=== PATIENT | male | born 1970 | race Caucasian/White ===

== ENCOUNTER 2020-04-14 15:27 | Emergency (ER) | payer MEDICAID ==
[~2020-04-14] VITALS: Ht 177.8 cm; Wt 88.5 kg
[2020-04-14 15:55] VITALS: BP 133/73
== END 2020-04-14 15:56 | disposition home or self-care (01) ==
LOC: ER 15:33
DX: S40.812A Abrasion of left upper arm, initial encounter (principal); S40.811A Abrasion of right upper arm, initial encounter; S80.812A Abrasion, left lower leg, initial encounter; S80.811A Abrasion, right lower leg, initial encounter; L97.828 Non-pressure chronic ulcer of other part of left lower leg with other specified severity; L97.818 Non-pressure chronic ulcer of other part of right lower leg with other specified severity; L98.498 Non-pressure chronic ulcer of skin of other sites with other specified severity; Z98.890 Other specified postprocedural states; W57.XXXA Bitten or stung by nonvenomous insect and other nonvenomous arthropods, initial encounter; Y93.89 Activity, other specified; Y92.89 Other specified places as the place of occurrence of the external cause; Y99.8 Other external cause status

== ENCOUNTER 2020-05-10 14:46 | Emergency (ER) | payer MEDICAID ==
[~2020-05-10] VITALS: Ht 177.8 cm; Wt 86.2 kg
[2020-05-10 14:46] VITALS: BP 139/84
--- NOTE | 2020-05-10 15:15 | NUR ---
Patient discharged to home in stable condition. Written and verbal after care instructions given. Patient verbalizes understanding of instruction. Pt ambulatory with a steady gait
== END 2020-05-10 15:16 | disposition home or self-care (01) ==
LOC: ER 14:46
DX: B86 Scabies (principal); Z98.890 Other specified postprocedural states

== ENCOUNTER 2020-08-29 04:31 | Emergency (ER) | payer MEDICAID ==
[~2020-08-29] VITALS: Ht 177.8 cm; Wt 90.7 kg
[2020-08-29 04:35] VITALS: BP 137/86
[2020-08-29] MEDS ORDERED: DOXY100C2 PO (04:52)
[2020-08-29] MEDS ORDERED: CEFTRIAXONE 1 G VIAL ONE (04:59)
[2020-08-29] MEDS ORDERED: LIDOCAINE /MPF 1% VIAL 5 ML VIAL ONE (04:59)
[2020-08-29] MEDS ORDERED: CEFTRIAXONE 1 G VIAL IM ONE (05:00)
[2020-08-29] MEDS ORDERED: DOXYCYCLINE HYCLATE (100 MG) 100 MG TABLET ONE (05:00)
[2020-08-29] MEDS ORDERED: DOXYCYCLINE HYCLATE (100 MG) 100 MG TABLET PO ONE (05:00)
== END 2020-08-29 05:22 | disposition home or self-care (01) ==
LOC: ER 04:34
DX: L03.116 Cellulitis of left lower limb (principal); L03.113 Cellulitis of right upper limb; A64 Unspecified sexually transmitted disease; L98.498 Non-pressure chronic ulcer of skin of other sites with other specified severity; F17.200 Nicotine dependence, unspecified, uncomplicated; Z98.890 Other specified postprocedural states; Z79.899 Other long term (current) drug therapy
CPT/HCPCS: 96372; 99283; J0696; J3490

== ENCOUNTER 2020-11-15 20:39 | Emergency (ER) | payer MEDICAID ==
[~2020-11-15] VITALS: Ht 172.7 cm; Wt 72.6 kg
[~2020-11-15 20:39] MED LIST: DOXY100C2 PO
[2020-11-15 20:50] VITALS: BP 147/78
--- NOTE | 2020-11-15 20:50 | NUR ---
Pt bibself for staple removal. Pt aaox4 breathing evenly and unlabored. Pt had carrie placed on 10/29. Pt vvs. PA at bedside for removal
--- NOTE | 2020-11-15 21:03 | NUR ---
Patient discharged to home in stable condition. Written and verbal after care instructions given. Patient verbalizes understanding of instruction. Pt ambulatory with a steady gait
== END 2020-11-15 21:03 | disposition home or self-care (01) ==
LOC: ER 20:41
DX: S21.212D Laceration without foreign body of left back wall of thorax without penetration into thoracic cavity, subsequent encounter (principal); F10.10 Alcohol abuse, uncomplicated; F17.200 Nicotine dependence, unspecified, uncomplicated; Y90.9 Presence of alcohol in blood, level not specified; Z60.2 Problems related to living alone; Z79.899 Other long term (current) drug therapy; X58.XXXD Exposure to other specified factors, subsequent encounter

== ENCOUNTER 2021-01-05 19:57 | Emergency (ER) | payer MEDICAID ==
[~2021-01-05] VITALS: Ht 180.3 cm; Wt 86.2 kg
--- NOTE | 2021-01-05 22:01 | NUR ---
PT AAOX4. BIBSELF C/O SWOLLEN RIGHT GROIN W/ PAIN LUMPS ON SHAFT OF PENIS SINCE 1x WEEK. PLACED IN BED 13 ON MONITOR AND PULSE OX. VSS. AWAITING ER MD FOR EVAL AND ORDERS.
[2021-01-05 23:35] LABS: BASOPHILS # (AUTO) 0.1 K/uL (0.0-0.2); BASOPHILS % (AUTO) 0.5 % (0.0-2.0); EOSINOPHILS % (AUTO) 0.2 % (0.0-6.0); HEMATOCRIT 42 % (39-51); LYMPHOCYTES % (AUTO) 6.9 % (20.0-44.0); MEAN CORPUSCULAR HGB CONC 33 g/dl (31.0-36.0); MEAN CORPUSCULAR VOLUME 92 fL (80-96); MONOCYTES # (AUTO) 1.6 K/uL (0.1-1.30); MONOCYTES % (AUTO) 10.4 % (2.0-12.0); NEUTROPHILS # (AUTO) 12.3 K/uL (1.8-8.9); PLATELET COUNT (AUTO) 270 K/uL (150-450); RED BLOOD CELL COUNT(AUTO) 4.58 MIL/uL (4.5-6.0); WHITE BLOOD COUNT (AUTO) 14.9 K/uL (4.3-11.0)
[2021-01-05 23:36] LABS: CALCIUM, SERUM 9.2 mg/dL (8.5-10.1); CREATININE 0.9 mg/dL (0.6-1.3); POTASSIUM 3.7 mmol/L (3.5-5.1)
[2021-01-05 23:51] LABS: ALBUMIN 3.4 g/dL (3.4-5.0); BILIRUBIN,DIRECT 0.1 mg/dL (0.0-0.2); BILIRUBIN,TOTAL 0.5 mg/dL (0.2-1.0); TOTAL PROTEIN, SERUM 9.6 g/dL (6.4-8.2)
[2021-01-06] MEDS ORDERED: NAPR-1192 PO (00:12)
[2021-01-06] MEDS ORDERED: NAPROXEN 250 MG TABLET ONE ×2 (00:33→00:34)
--- NOTE | 2021-01-06 00:39 | NUR ---
Patient discharged to home in stable condition. Written and verbal after care instructions given. Patient verbalizes understanding of instruction and RX. Pt feels better.
[2021-01-06 01:07] VITALS: BP 131/76
== END 2021-01-06 01:08 | disposition home or self-care (01) ==
LOC: ER 20:18
DX: N43.3 Hydrocele, unspecified (principal); A63.0 Anogenital (venereal) warts; F17.200 Nicotine dependence, unspecified, uncomplicated; Z60.2 Problems related to living alone
CPT/HCPCS: 36415; 80048-TC; 80076-TC; 83605-TC; 83690-TC; 85025-TC

== ENCOUNTER 2021-04-06 19:24 | Emergency (ER) | payer MEDICAID ==
[~2021-04-06 19:24] MED LIST changes: +NAPR-1192 PO
--- NOTE | 2021-04-06 19:38 | NUR ---
CALLED FOR TRIAGE, NOT IN WAITING ROOM.
--- NOTE | 2021-04-06 19:54 | NUR ---
CALLED FOR TRIAGE, NOT IN WAITING ROOM.
--- NOTE | 2021-04-06 20:14 | NUR ---
CALLED FOR TRIAGE, NOT IN WAITING ROOM.
== END 2021-04-06 20:15 | disposition home or self-care (01) ==
LOC: ER 19:29
DX: Z53.21 Procedure and treatment not carried out due to patient leaving prior to being seen by health care provider (principal)

== ENCOUNTER 2021-04-08 17:46 | Emergency (ER) | payer MEDICAID ==
[~2021-04-08] VITALS: Ht 177.8 cm; Wt 83.9 kg
[2021-04-08 18:38] VITALS: BP 133/80
[2021-04-08] MEDS ORDERED: CEFTRIAXONE 500 MG VIAL ONE (18:47)
[2021-04-08] MEDS ORDERED: DOXYCYCLINE HYCLATE (100 MG) 100 MG TABLET ONE (18:47)
[2021-04-08] MEDS ORDERED: DOXYCYCLINE HYCLATE (100 MG) 100 MG TABLET PO ONE (19:00)
[2021-04-08] MEDS ORDERED: CEFTRIAXONE 500 MG VIAL IM ONE (19:00)
--- NOTE | 2021-04-08 19:18 | NUR ---
PT REFUSING SCROTAL ULTRASOUND. MARIEL MARTI AWARE.
[2021-04-08] MEDS ORDERED: DOXY-226 PO (20:05)
[2021-04-08] MEDS ORDERED: IMIQ7.5C3 TP (20:05)
[2021-04-08 20:11] LABS: BILIRUBIN,URINE SMALL (NEGATIVE); COLOR,URINE YELLOW (YELLOW); LEUKOCYTE ESTERASE ,URINE NEGATIVE (NEGATIVE); NITRITE, URINE NEGATIVE (NEGATIVE); PH,URINE 5.5 (5.0-8.0); PROTEIN,URINE TRACE mg/dl (NEGATIVE); UGLUCOSE NEGATIVE (NEGATIVE); UROBILINOGEN,URINE 0.2 EU/dL (0.2)
--- NOTE | 2021-04-08 20:17 | NUR ---
Patient discharged to home in stable condition. Rx and Written and verbal after care instructions given. Patient verbalizes understanding of instruction.
[2021-04-08 20:24] LABS: BACTERIA,URINE 1+ /HPF (None Seen); CALCIUM OXALATE CRYSTALS,UR Few /HPF (None Seen); MUCUS,URINE Many /LPF (None Seen)
== END 2021-04-08 20:18 | disposition home or self-care (01) ==
LOC: ER 17:51
DX: N43.3 Hydrocele, unspecified (principal); A63.0 Anogenital (venereal) warts; Z20.2 Contact with and (suspected) exposure to infections with a predominantly sexual mode of transmission; F17.200 Nicotine dependence, unspecified, uncomplicated; Z60.2 Problems related to living alone; Z79.899 Other long term (current) drug therapy
CPT/HCPCS: 76870; 81001; 87491; 87591; 96372; 99284; J0696

== ENCOUNTER 2021-09-11 03:15 | Emergency (ER) | payer MEDICAID ==
[~2021-09-11] VITALS: Ht 177.8 cm; Wt 72.6 kg
[~2021-09-11 03:15] MED LIST changes: +DOXY-226 PO; +IMIQ7.5C3 TP
--- NOTE | 2021-09-11 04:20 | NUR ---
BIBS C/O WHITE VESSICLE/BLISTERS ON PENIS NOW SPREADING TO LEGS. PT AWAKE AND ALERTX4 BREATHING EVEN AND UNLABORED. PT CHANGED INTO GOWN AND PROVIDED BLANKET FOR COMFORT. ALL V/S STABLE.
[2021-09-11] MEDS ORDERED: ACYCLOVIR 200 MG CAPSULE ONE (04:44)
[2021-09-11] MEDS ORDERED: diphenhydrAMINE HCL 50 MG CAPSULE ONE (04:44)
[2021-09-11] MEDS ORDERED: ACYC400T19 PO (04:51)
[2021-09-11] MEDS ORDERED: diphenhydrAMINE HCL 25 MG CAPSULE PO ONE (05:00)
[2021-09-11] MEDS ORDERED: ACYCLOVIR 200 MG CAPSULE PO ONE (05:00)
[2021-09-11 05:01] VITALS: BP 140/70
--- NOTE | 2021-09-11 05:01 | NUR ---
Patient discharged to home in stable condition. Written and verbal after care instructions given. Patient verbalizes understanding of instruction.
== END 2021-09-11 05:02 | disposition home or self-care (01) ==
LOC: ER 03:18
DX: A60.01 Herpesviral infection of penis (principal); N43.2 Other hydrocele; F17.200 Nicotine dependence, unspecified, uncomplicated; Z85.47 Personal history of malignant neoplasm of testis; Z79.1 Long term (current) use of non-steroidal anti-inflammatories (NSAID); Z79.899 Other long term (current) drug therapy; Z60.2 Problems related to living alone
CPT/HCPCS: 99283; 99406; Q0163

== ENCOUNTER 2022-04-28 13:08 | Emergency (ER) | payer MEDICAID ==
[~2022-04-28] VITALS: Ht 177.8 cm; Wt 86.2 kg
[~2022-04-28 13:08] MED LIST changes: +ACYC400T19 PO
[2022-04-28 13:30] VITALS: BP 142/86
[2022-04-28] MEDS ORDERED: KETOROLAC TROMETHAMINE 15 MG/ML VIAL ONE (14:20)
[2022-04-28] MEDS ORDERED: KETOROLAC TROMETHAMINE INJ 30 MG/ML VIAL IM ONE (14:30)
[2022-04-28] MEDS ORDERED: IBUP-1955 PO (14:48)
[2022-04-28] MEDS ORDERED: AMOX-430 PO (14:48)
--- NOTE | 2022-04-28 15:02 | NUR ---
Patient discharged to home in stable condition. Written and verbal after care instructions given. Patient verbalizes understanding of instruction.
== END 2022-04-28 15:03 | disposition home or self-care (01) ==
LOC: ER 13:10
DX: S61.251A Open bite of left index finger without damage to nail, initial encounter (principal); S09.90XA Unspecified injury of head, initial encounter; F17.200 Nicotine dependence, unspecified, uncomplicated; Z60.2 Problems related to living alone; Z79.899 Other long term (current) drug therapy; Y04.2XXA Assault by strike against or bumped into by another person, initial encounter; Y04.1XXA Assault by human bite, initial encounter; Y93.89 Activity, other specified; Y92.89 Other specified places as the place of occurrence of the external cause; Y99.8 Other external cause status
CPT/HCPCS: 99283; 96372; J1885

== ENCOUNTER 2022-06-11 06:39 | Emergency (ER) | payer MEDICAID ==
[~2022-06-11] VITALS: Ht 177.8 cm; Wt 90.3 kg
[~2022-06-11 06:39] MED LIST changes: +AMOX-430 PO; +IBUP-1955 PO
--- NOTE | 2022-06-11 06:55 | NUR ---
CALLED TO TRIAGE, NO RESPONSE
[2022-06-11 07:05] VITALS: BP 154/97
[2022-06-11] MEDS ORDERED: SULF1TAB48 PO (07:10)
[2022-06-11] MEDS ORDERED: DOXY150T3 PO (07:10)
--- NOTE | 2022-06-11 07:15 | NUR ---
Patient discharged to home in stable condition. Written and verbal after care instructions given. Patient verbalizes understanding of instruction.
== END 2022-06-11 07:21 | disposition home or self-care (01) ==
LOC: ER 06:39
DX: L03.116 Cellulitis of left lower limb (principal); F17.200 Nicotine dependence, unspecified, uncomplicated; Z60.2 Problems related to living alone; Z79.899 Other long term (current) drug therapy

== ENCOUNTER 2022-08-14 05:14 | Emergency (ER) | payer MEDICAID ==
[~2022-08-14] VITALS: Ht 175.3 cm; Wt 94.3 kg
[~2022-08-14 05:14] MED LIST changes: +DOXY150T3 PO; +SULF1TAB48 PO
--- NOTE | 2022-08-14 06:54 | NUR ---
BIBSELF FROM HOME C/O L BARBOZA & REDNESS X 1 DAY. PT A/OX4. TOLERATING R/A WELL WITH NO RESP DISTRESS. SAFETY MEASURES IN PLACE.
--- NOTE | 2022-08-14 07:23 | NUR ---
DR. SAUL MORALES AT PT'S BEDSIDE FOR US TO [facility]
[2022-08-14] MEDS ORDERED: CEPH500C2 PO (07:28)
--- NOTE | 2022-08-14 07:33 | NUR ---
Patient discharged to home in stable condition. Written and verbal after care instructions given. Patient verbalizes understanding of instruction.
[2022-08-14 07:34] VITALS: BP 160/86
== END 2022-08-14 07:34 | disposition home or self-care (01) ==
LOC: ER 05:16
DX: L03.116 Cellulitis of left lower limb (principal); I10 Essential (primary) hypertension; Z79.899 Other long term (current) drug therapy

== ENCOUNTER 2023-08-02 01:32 | Emergency (ER) | payer MEDICAID, OTHER ==
[~2023-08-02] VITALS: Ht 177.8 cm; Wt 88.5 kg
[~2023-08-02 01:32] MED LIST changes: +CEPH500C2 PO
[2023-08-02 02:26] VITALS: BP 141/89; TEMP 97.9; O2SAT 99
[2023-08-02] MEDS ORDERED: TOBR5DRO LEFTEYE (02:32)
== END 2023-08-02 02:39 | disposition home or self-care (01) ==
LOC: ER 01:36
DX: H10.89 Other conjunctivitis (principal); I10 Essential (primary) hypertension; Z60.2 Problems related to living alone

== ENCOUNTER 2023-09-12 04:28 | Emergency (ER) | payer OTHER ==
[~2023-09-12] VITALS: Ht 177.8 cm; Wt 89.8 kg
[~2023-09-12 04:28] MED LIST changes: +TOBR5DRO LEFTEYE
[2023-09-12 05:01] VITALS: BP 139/79; TEMP 97.7; O2SAT 99
[2023-09-12] MEDS ORDERED: MUPI22OI2 TP (06:17)
[2023-09-13] MEDS ORDERED: LEVOFLOXACIN 750 MG /D5W 150ML 0 ML IV ONE (09:42)
== END 2023-09-12 06:48 | disposition home or self-care (01) ==
LOC: ER 04:54
DX: B88.9 Infestation, unspecified (principal); L29.9 Pruritus, unspecified; I10 Essential (primary) hypertension; Z60.2 Problems related to living alone
CPT/HCPCS: J1956

== ENCOUNTER 2025-05-27 05:20 | Emergency (ER) | payer MEDICAID, OTHER ==
[~2025-05-27] VITALS: Ht 175.3 cm; Wt 86.2 kg
[~2025-05-27 05:20] MED LIST changes: +MUPI22OI2 TP
[2025-05-27 06:07] VITALS: BP 148/74; TEMP 98; O2SAT 99
[2025-05-27] MEDS ORDERED: TRIA15OI9 TP (06:18)
[2025-05-27] MEDS ORDERED: CYCL5TAB PO (06:18)
[2025-05-27] MEDS ORDERED: IBUP-1957 PO (06:18)
[2025-05-27] MEDS ORDERED: PERM60CR4 TP (06:18)
== END 2025-05-27 06:32 | disposition home or self-care (01) ==
LOC: ER 05:26
DX: L30.9 Dermatitis, unspecified (principal); G89.29 Other chronic pain; I10 Essential (primary) hypertension; F17.200 Nicotine dependence, unspecified, uncomplicated; Z79.1 Long term (current) use of non-steroidal anti-inflammatories (NSAID); Z91.048 Other nonmedicinal substance allergy status